=== PATIENT | male | born 1970 | race Caucasian/White ===

== ENCOUNTER 2016-10-19 08:43 | Emergency (ER) | payer OTHER ==
--- NOTE | ~2016-10-19 | CT2 ---
[facility] A Service of [facility] RADIOLOGY TEXT RESULTS PATIENT: RUPINDER GARCIA LOCATION: [facility] : 72 UNIT #: [id number] AGE: [address]: Pop Graham DO SEX: M ORDER DR: [id number] [facility] [address]. [place], [place] [address] [id number] E MR#: [id number] Acc #: [id number] NAME: RUPINDER GARCIA : 1970 SEX: M STUDY DATE/TIME: 10/19/2016 10:25 UNIT: NACNY ROOM: STUDY DESCRIPTION: CT Abd and Pelv W Cont Attending Physician: Pop Graham D.O. Ordering Physician: Nata Matias P.A.-C. Primary Care Physician: Adriano Judd M.D. MEDICAL IMAGING REPORT This report is preliminary unless electronic signature is present EXAM CT abdomen and pelvis with contrast HISTORY Abdominal pain and vomiting since 1 o'clock this morning. TECHNIQUE Axial images were performed through the abdomen and pelvis following IV contrast. Multiplanar reconstructed images were reviewed at a workstation. This CT exam was performed with one or more of the following radiation dose reduction techniques: automatic exposure control, adjustment of mA and/or kV according to patient size, and iterative reconstruction. FINDINGS Abdomen: Lung bases unremarkable except for some dependent atelectasis. Liver, spleen, gallbladder, pancreas, kidneys and adrenal glands unremarkable. Visualized GI tract appears normal. Appendix not clearly identified, but no inflammatory changes seen in the lower quadrant of pelvis. Retroperitoneum unremarkable. Pelvis: Bladder is decompressed. Small amount of prostatic calcification. Osseous structures, soft tissues unremarkable. IMPRESSION No acute intraabdominal intrapelvic pathology identified. The appendix not clearly identified as a discrete structure but no focal inflammatory change identified. Dictated by.Patrice Oliva M.D. THIS IS AN ELECTRONICALLY VERIFIED REPORT [facility] A Service of [facility] RADIOLOGY TEXT RESULTS PATIENT: RUPINDER GARCIA LOCATION: [facility] : 72 UNIT #: [id number] AGE: [address]: Pop Graham DO SEX: M ORDER DR: Taylor Oliva M.D. at 10/19/2016 5:28 PM RITIKA/tori TD: 10/19/2016 12:08 JOB #: [id number] MEDICAL IMAGING REPORT Page 1 of 1 COPY
[2016-10-19 07:56] LABS: INFLUENZA A NEG (NEG); INFLUENZA B NEG (NEG)
[2016-10-19 08:20] LABS: BASOPHIL% 0.2 % (0-2.5); EOSINOPHIL% 0.1 % (0.0-7.0); HEMATOCRIT 48.2 % (38.0-50.0); HEMOGLOBIN 16.6 gm/dL (13.0-16.0); LYMPHOCYTE# 1.5 X10e3 (1.0-3.5); LYMPHOCYTE% 12.1 % (17.0-45.0); MEAN CELL VOLUME 99.1 FL (83-96); MEAN CORPUSCULAR HGB CONC 34.3 g/dL (30-36); MEAN PLATELET VOLUME 8.6 FL (6.5-11.5); MONOCYTE# 0.4 X10e3 (0-1.0); MONOCYTE% 3.3 % (3.0-12.0); NEUTROPHIL# 10.7 X10e3 (1.5-7.1); NEUTROPHIL% 84.3 % (40-75); PLATELET COUNT 271 X10e3 (140-420); RED BLOOD COUNT 4.87 X10e (3.90-5.60); RED CELL DISTRIBUTION WIDTH 13.4 % (11.0-15.5); WHITE BLOOD COUNT 12.7 X10e3 (4.0-10.5)
[2016-10-19 08:21] LABS: DIFF IND NO
[~2016-10-19 08:43] MED LIST: ADDERALL20 MG DOB; ADDERALLXR PO; AMBIEN10 MG PO; BACLOFEN10 MG PO; BISMUTH PO; DIAZEPAM PO; FAMOTIDINE PO; FLAGYL PO; NEXIUM PO; PHENERGAN SUPP25 MG PR; PHENERGAN25 MG PO; TETRACYCLINE PO; VICODIN 5/1 TAB 5/50 PO; VOLTAREN75 MG PO; ZOFRAN PO; ZOLOFT100 MG PO; ZYPREXA10 MG PO
[2016-10-19 09:03] LABS: ALBUMIN SERUM 4.9 g/dL (3.5-5.0); ALKALINE PHOSPHATASE 65 U/L (32-92); ALT (SGPT) 25 U/L (10-40); AMYLASE 15 U/L (0-46); AST (SGOT) 22 U/L (10-42); BILIRUBIN,TOTAL 0.6 mg/dL (0.2-2.0); BLOOD UREA NITROGEN 11 mg/dL (9-23); BUN/CREATININE RATIO 12.22; CALCIUM SERUM 9.5 mg/dL (8.4-10.2); CARBON DIOXIDE 21 mmol/L (22-31); CHLORIDE 102 mmol/L (100-111); CREATININE SERUM 0.9 mg/dL (0.6-1.4); GLOM FILT RATE Estimated 102.8 mL/min (>60); GLUCOSE FASTING 178 mg/dL (70-110); LIPASE 26 U/L (22-51); POTASSIUM 3.7 mmol/L (3.5-5.1); PROTEIN TOTAL SERUM 8.1 g/dL (6.0-8.3); SODIUM 135 mmol/L (135-145)
[2016-10-19 09:05] LABS: BILIRUBIN, DIRECT <0.1 mg/dL (0.0-0.2); BILIRUBIN,INDIRECT 0.5 mg/dL (0.0-0.9)
[2016-10-19 10:19] LABS: URINE SOURCE CLEAN CATCH
[2016-10-19 10:35] LABS: URINE APPEARANCE CLEAR; URINE BILIRUBIN NEG (NEG); URINE BLOOD NEG (NEG); URINE COLOR YELLOW; URINE GLUCOSE 100 MG/DL (NEG); URINE KETONE 2+ (NEG); URINE LEUKOCYTE ESTERASE NEG (NEG); URINE NITRATE NEG (NEG); URINE PROTEIN NEG (NEG); URINE SPECIFIC GRAVITY 1.022 (1.003-1.035)
[2016-10-19 10:38] LABS: CULTURE INDICATED? NO
== END 2016-10-19 13:30 | disposition home or self-care (01) ==
LOC: CED 08:43
PROVIDERS: Physician Assistant
DX: R10.84 Generalized abdominal pain (principal); R11.2 Nausea with vomiting, unspecified; F17.200 Nicotine dependence, unspecified, uncomplicated; Z88.8 Allergy status to other drugs, medicaments and biological substances; Z79.899 Other long term (current) drug therapy; Z98.890 Other specified postprocedural states
CPT/HCPCS: 36415; 74177; 80048; 80076; 81003; 82150; 83690; 84484; 85025; 87651; 87804; 96361; 96372; 96374; 96375; 96376; 99284; J0500; J1885; J2405; J2550; Q9967